=== PATIENT | female | born 1975 | race Hispanic/Latino ===

== ENCOUNTER 2018-08-23 00:22 | Emergency (ER) | payer SELFPAY ==
[2018-08-23 01:13] LABS: Absolute Lymphocytes (CBC) 3.1 K/uL (0.7-4.9); Basophils % 0.7 % (0-1.3); Eosinophils % 3.2 % (0-4.4); Hematocrit 38.4 % (36.0-45.0); MPV 9.4 fL (7.6-11.3); Monocytes % 9.6 % (3.3-12.3); RBC Red Blood Cell Count 4.54 M/uL (3.86-4.86)
[2018-08-23] MEDS ORDERED: MORPHINE 4 MG/ML SYR ONE (01:26)
[2018-08-23] MEDS ORDERED: ONDANSETRON 4 MG/2 ML VIAL ONE (01:26)
[2018-08-23 01:31] LABS: Urine Blood NEGATIVE (NEG); Urine Glucose NEGATIVE (NEG); Urine Protein NEGATIVE (NEG)
[2018-08-23 01:41] LABS: ALT/SGPT 25 U/L (12-78); AST/SGOT 16 U/L (15-37); Albumin 3.6 g/dL (3.4-5.0); Alkaline Phosphatase 67 U/L (45-117); BUN Blood Urea Nitrogen 9 mg/dL (7-18); Bicarbonate 29 mmol/L (21-32); Bilirubin Direct < 0.1 mg/dL (0-0.2); Bilirubin Total 0.3 mg/dL (0.2-1.0); Glucose Level 108 mg/dL (74-106); Lipase 109 U/L (73-393); Potassium 3.8 mmol/L (3.5-5.1); Protein, Total 7.7 g/dL (6.4-8.2); Sodium Level 140 mmol/L (136-145)
[2018-08-23 01:42] LABS: Urine Bacteria <20 /HPF (<20); Urine Culture Reflex Order NOT NEEDED; Urine RBC <5 /HPF (NONE SEEN)
--- NOTE | 2018-08-23 03:54 | ER ---
Nurse's Notes [facility] Name: Tori Marc Age: 43 yrs Sex: Female : 1975 Arrival Date: 08/23/2018 Time: 00:26 Bed 20 Private MD: Diagnosis: biliary colic Presentation: 08/23 00:28 Presenting complaint: Patient states: abd pain for the last two hours, vomiting. Pain la1 in RUQ and across upper abd. I have had this pain in the past in [place] and it was my gallbladder and they gave me medicine for pain. Transition of care: patient was not received from another setting of care. Onset of symptoms was August 23, 2018. Risk Assessment: Do you want to hurt yourself or someone else? Patient reports no desire to harm self or others. Initial Sepsis Screen: Does the patient meet any 2 criteria? No. Patient's initial sepsis screen is negative. Does the patient have a suspected source of infection? No. Patient's initial sepsis screen is negative. Care prior to arrival: None. 00:28 Method Of Arrival: Ambulatory la1 00:28 Acuity: DIONISIO 3 la1 Historical: - Allergies: 00:29 No Known Allergies; la1 - PMHx: 00:29 None; la1 - Immunization history:: Adult Immunizations up to date. - Social history:: Smoking status: Patient/guardian denies using tobacco. - Ebola Screening: : No symptoms or risks identified at this time. Screenin:39 Abuse screen: Denies threats or abuse. Denies injuries from another. Nutritional rv screening: No deficits noted. Tuberculosis screening: No symptoms or risk factors identified. Fall Risk None identified. Assessment: 01:00 General: Appears in no apparent distress. uncomfortable, Behavior is calm, cooperative. rv 01:00 Pain: Complains of pain in abdomen. Neuro: Level of Consciousness is awake, alert, rv obeys commands, Oriented to person, place, time, situation. Cardiovascular: Patient's skin is warm and dry. Respiratory: Airway is patent. GI: Bowel sounds present X 4 quads. Abd is soft and non tender X 4 quads. : No signs and/or symptoms were reported regarding the genitourinary system. EENT: No signs and/or symptoms were reported regarding the EENT system. Derm: Skin is intact. Musculoskeletal: No signs and/or symptoms reported regarding the musculoskeletal system. 02:00 Reassessment: Patient appears in no apparent distress at this time. Patient and/or jb4 family updated on plan of care and expected duration. Pain level reassessed. Patient is alert, oriented x 3, equal unlabored respirations, skin warm/dry/pink. 03:26 Reassessment: Patient appears in no apparent distress at this time. Patient and/or jb4 family updated on plan of care and expected duration. Pain level reassessed. Patient is alert, oriented x 3, equal unlabored respirations, skin warm/dry/pink. 04:26 Reassessment: Patient appears in no apparent distress at this time. Patient and/or jb4 family updated on plan of care and expected duration. Pain level reassessed. Patient is alert, oriented x 3, equal unlabored respirations, skin warm/dry/pink. pt ambulated out of ED with steady gait, with family, verbalized understanding of d/c and follow up instructions, denies questions or concerns. Vital Signs: 00:29 BP 131 / 60; Pulse 85; Resp 16; Temp 97.4; Pulse Ox 98% on R/A; Weight 80 kg; Height 5 la1 ft. 0 in. (152.40 cm); 01:39 BP 121 / 68; Pulse 71; Resp 17; Pulse Ox 99% on R/A; rv 03:00 BP 120 / 88; Pulse 68; Resp 16; Pulse Ox 98% on R/A; jb4 00:29 Body Mass Index 34.44 (80.00 kg, 152.40 cm) la1 ED Course: 00:26 Patient arrived in ED. mr 00:29 Triage completed. la1 00:29 Arm band placed on left wrist. la1 00:33 Mega Mireles PA is PHCP. cp 00:33 Víctor Martinez MD is Attending Physician. cp 01:15 Inserted saline lock: 18 gauge in right antecubital area, using aseptic technique. rv Blood collected. 01:35 Matt Britt, DESTINEE is Primary Nurse. rv 01:39 Patient has correct armband on for positive identification. Placed in gown. Bed in low rv position. Call light in reach. Side rails up X 1. Adult w/ patient. Pulse ox on. NIBP on. 01:58 Report given to kate seay. rv 03:11 CT Abd/Pelvis - IV Contrast Only In Process Unspecified. EDMS 03:52 Supa Shah MD is Referral Physician. ps1 04:29 No provider procedures requiring assistance completed. IV discontinued, intact, jb4 bleeding controlled, No redness/swelling at site. Administered Medications: 01:20 Drug: morphine 4 mg Route: IVP; Site: right antecubital; rv 01:57 Follow up: Response: Marked relief of symptoms; Pain is decreased rv 01:20 Drug: Zofran 4 mg Route: IVP; Site: right antecubital; rv 01:58 Follow up: Response: No adverse reaction rv Outcome: 03:53 Discharge ordered by MD. ps1 04:29 Discharged to home ambulatory, with family. jb4 04:29 Condition: stable 04:29 Discharge instructions given to patient, family, Instructed on discharge instructions, follow up and referral plans. medication usage, Demonstrated understanding of instructions, follow-up care, medications, Prescriptions given X 1. 04:30 Patient left the ED. jb4 Signatures: Dispatcher [employer] EDMA Choco Peggy mr William Bryson, RN RN la1 Mega Mireles PA PA cp Bryson, James RN RN jb4 Víctor Martinez MD MD ps1 Matt Britt RN RN rv Corrections: (The following items were deleted from the chart) 00:30 00:28 Presenting complaint: Patient states: abd pain for the last two hours, vomiting. la1 Pain in RUQ and across upper abd. la1
--- NOTE | 2018-08-23 03:54 | EDPHYS ---
Physician Documentation [facility] Name: Tori Marc Age: 43 yrs Sex: Female : 1975 Arrival Date: 08/23/2018 Time: 00:26 Bed 20 Private MD: ED Physician Víctor Martinez HPI: 08/23 00:55 This 43 yrs old Female presents to ER via Ambulatory with complaints of cp Abdominal Pain, Vomiting. 00:55 The patient presents with abdominal pain in the right upper quadrant. Onset: The cp symptoms/episode began/occurred 2 hour(s) ago. The symptoms radiate to right back. 00:55 Associated signs and symptoms: Pertinent negatives: blood in stools, chest pain, cp constipation, diarrhea, dysuria, fever, vomiting. 00:55 Severity of pain: in the emergency department the pain is unchanged. The patient has cp experienced similar episodes in the past, multiple times, patient reports she was told by physician in [place] that pain was due to gallbladder. Historical: - Allergies: 00:29 No Known Allergies; la1 - PMHx: 00:29 None; la1 - Immunization history:: Adult Immunizations up to date. - Social history:: Smoking status: Patient/guardian denies using tobacco. - Ebola Screening: : No symptoms or risks identified at this time. ROS: 01:00 Constitutional: Negative for body aches, chills, fever, poor PO intake. cp 01:00 Eyes: Negative for injury, pain, redness, and discharge. cp Exam: 01:05 Constitutional: The patient appears in no acute distress, alert, awake, cp non-diaphoretic, non-toxic, well developed, well nourished, in obvious pain, uncomfortable. 01:05 Head/Face: Normocephalic, atraumatic. cp 01:05 Eyes: Periorbital structures: appear normal, Conjunctiva: normal, no exudate, no cp injection, Sclera: no appreciated abnormality, Lids and lashes: appear normal, bilaterally. 01:05 ENT: External ear(s): are unremarkable, Nose: is normal, Mouth: Lips: moist, Oral cp mucosa: pink and intact, moist, Posterior pharynx: is normal, airway is patent. 01:05 Chest/axilla: Inspection: normal, Palpation: is normal, no crepitus, no tenderness. 01:05 Cardiovascular: Rate: normal, Rhythm: regular. 01:05 Respiratory: the patient does not display signs of respiratory distress, Respirations: normal, no use of accessory muscles, no retractions, no splinting, no tachypnea, labored breathing, is not present, Breath sounds: are clear throughout, no decreased breath sounds, no stridor, no wheezing. 01:05 Abdomen/GI: Inspection: abdomen appears normal, Bowel sounds: active, all quadrants, Palpation: soft, in all quadrants, severe abdominal tenderness, in the right upper quadrant, rebound tenderness, is appreciated in the right upper quadrant, voluntary guarding, is elicited in the right upper quadrant. 01:05 Back: pain, that is moderate, of the right mid back. Vital Signs: 00:29 BP 131 / 60; Pulse 85; Resp 16; Temp 97.4; Pulse Ox 98% on R/A; Weight 80 kg; Height 5 la1 ft. 0 in. (152.40 cm); 01:39 BP 121 / 68; Pulse 71; Resp 17; Pulse Ox 99% on R/A; rv 03:00 BP 120 / 88; Pulse 68; Resp 16; Pulse Ox 98% on R/A; jb4 00:29 Body Mass Index 34.44 (80.00 kg, 152.40 cm) la1 MDM: 00:46 Patient medically screened. cp 01:00 Differential diagnosis: appendicitis, bowel obstruction, cholecystitis, Cholelithiasis, cp gastritis, pancreatitis, Ureterolithiasis, urinary tract infection, colitis. 03:54 Data reviewed: vital signs, nurses notes, lab test result(s), radiologic studies, CT ps1 scan, and as a result, I will discharge patient. ED course: patient has known cholelithiasis. Biliary colic. No leukocytosis. No elevated transaminase. No CT findings suggestive of infection. Normal CBD. Home with gen surg referral. . 08/23 00:52 Order name: Basic Metabolic Panel; Complete Time: 01:44 cp 08/23 01:44 Interpretation: Normal except: GLUC 108; GFR 87. 08/23 00:52 Order name: CBC with Diff; Complete Time: 01:27 08/23 01:27 Interpretation: Reviewed. 08/23 00:52 Order name: Creatinine for Radiology; Complete Time: 01:44 cp 08/23 00:52 Order name: Hepatic Function; Complete Time: 01:44 cp 08/23 01:44 Interpretation: Normal except: GLOB 4.1; A/G 0.9. cp 08/23 00:52 Order name: Lipase; Complete Time: 01:44 cp 08/23 00:52 Order name: Urine Microscopic Only; Complete Time: 01:44 cp 08/23 00:52 Order name: IV Saline Lock; Complete Time: 01:41 cp 08/23 00:52 Order name: Labs collected and sent; Complete Time: 01:41 cp 08/23 00:52 Order name: Urine Dipstick-Ancillary (obtain specimen); Complete Time: 01:41 cp 08/23 00:52 Order name: CT Abd/Pelvis - IV Contrast Only cp 08/23 01:27 Order name: Urine Dipstick--Ancillary (enter results); Complete Time: 01:44 mt 08/23 01:44 Interpretation: Normal except: UESTR TRACE. cp 08/23 01:27 Order name: Urine --Ancillary (enter results); Complete Time: 01:44 mt 08/23 00:52 Order name: Urine Test (obtain specimen); Complete Time: 01:41 cp Administered Medications: 01:20 Drug: morphine 4 mg Route: IVP; Site: right antecubital; rv 01:57 Follow up: Response: Marked relief of symptoms; Pain is decreased rv 01:20 Drug: Zofran 4 mg Route: IVP; Site: right antecubital; rv 01:58 Follow up: Response: No adverse reaction rv Disposition: 06:18 Co-signature as Attending Physician, Víctor Martinez MD Available for consultation at ps1 all times. . Disposition: 08/23/18 03:53 Discharged to Home. Impression: biliary colic. - Condition is Stable. - Discharge Instructions: Biliary Colic, Adult. - Prescriptions for Tramadol 50 mg Oral Tablet - take 1 tablet by ORAL route every 8 hours as needed; 12 tablet. - Medication Reconciliation Form, Thank You Letter, Antibiotic Education, Prescription Opioid Use form. - Follow up: Supa Shah MD; When: 48 Hours; Reason: Further diagnostic work-up, Recheck today's complaints. Follow up: Emergency Department; When: As needed; Reason: Fever > 102 F, Worsening of condition. - Problem is an ongoing problem. - Symptoms have worsened. Signatures: Dispatcher [employer] EDMS William Bryson RN RN la1 Mega Mireles PA PA cp Bryson, James RN RN jb4 Víctor Martinez MD MD ps1 Matt Britt RN RN rv Corrections: (The following items were deleted from the chart) 04:30 03:53 08/23/2018 03:53 Discharged to Home. Impression: biliary colic. Condition is jb4 Stable. Forms are Medication Reconciliation Form, Thank You Letter, Antibiotic Education, Prescription Opioid Use. Follow up: Dr. Supa Shah; When: 48 Hours; Reason: Further diagnostic work-up, Recheck today's complaints. Follow up: Emergency Department; When: As needed; Reason: Fever > 102 F, Worsening of condition. Problem is an ongoing problem. Symptoms have worsened. ps1
--- NOTE | 2018-08-23 10:27 | RAD REPORT ---
EXAM DESCRIPTION: CT Abdomen and Pelvis With Intravenous Contrast CLINICAL HISTORY: The patient is 43 years old and is Female; RUQ abdomen pain TECHNIQUE: Axial computed tomography images of the abdomen and pelvis with intravenous contrast. S agittal and coronal reformatted images were created and reviewed. This CT exam was performed using one or more of the following dose reduction techniques: automated exposure control, adjustment of t he mA and/or kV according to patient size, and/or use of iterative reconstruction technique. Delayed imaging was performed. COMPARISON: None. FINDINGS: Motion degraded examination. LUNG BASES: Bibasilar atelectasis. ABDOMEN: LIVER: Unremarkable. No mass. GALLBLADDER AND BILE DUCTS: Peripherally calcified gallstone measuring 2.4 cm seen in the gallblad romaine neck. Fluid distention of the gallbladder is also present. No gallbladder wall thickening or marvin cholecystic fluid. No ductal dilation. PANCREAS: Unremarkable. No mass. No ductal dilation. SPLEEN: Unremarkable. No splenomegaly. ADRENALS: Unremarkable. No mass. KIDNEYS AND URETERS: Unremarkable. No solid mass. No hydronephrosis. STOMACH AND BOWEL: Unremarkable. No obstruction. No mucosal thickening. PELVIS: APPENDIX: The appendix is seen and is within normal limits. BLADDER: Thickening of the bladder wall. REPRODUCTIVE: 2 cm right ovarian cyst. ABDOMEN and PELVIS: INTRAPERITONEAL SPACE: Unremarkable. No free air. No significant fluid collection. BONES/JOINTS: Grade 1 anterolisthesis of L4-L5 degenerative basis. No acute fracture. No dislocation. SOFT TISSUES: Small fat-containing umbilical hernia. VASCULATURE: Unremarkable. No abdominal aortic aneurysm. LYMPH NODES: Unremarkable. No enlarged lymph nodes. IMPRESSION: Motion degraded examination 1. 2.4 cm stone in the gallbladder neck with associated fluid distention. No pericholecystic fluid or gallbladder wall thickening. Dedicated right upper quadrant ultrasound may be of diagnostic use 2. 2 cm right ovarian cyst. No follow-up imaging is recommended. Reference: US recommendations based on Radiology 2010 Sep;256(3):943-54; CT/MR recommendations based on J Am Chandu Radiol 2013;10:675-681. 3. Thickening of the bladder wall. Correlate with signs of cystitis. Electronically signed by: Denis Acevedo DO 08/23/2018 3:36 AM CDT Due to temporary technical issues with the PACS/Fluency reporting system, reports are being signed by the in house radiologist as a courtesy to ensure prompt reporting. The interpreting radiologist is f ully responsible for the content of the report.
== END 2018-08-23 04:30 | disposition home or self-care (01) ==
LOC: ER 00:22
DX: K80.50 Calculus of bile duct without cholangitis or cholecystitis without obstruction (principal)
CPT/HCPCS: 36415; 74177; 80048; 80076; 81003; 81015; 81025; 83690; 85025; 96374; 96375; 99284; J2405; Q9967

== ENCOUNTER 2018-08-23 11:58 | Inpatient (IN) | payer SELFPAY ==
[2018-08-23] MEDS ORDERED: ONDANSETRON 4 MG/2 ML VIAL ONE ×2 (12:46→17:32)
[2018-08-23] MEDS ORDERED: NA CHLORIDE 0.9% 1,000 ML ONE (12:46)
[2018-08-23 12:52] LABS: Absolute Lymphocytes (CBC) 1.5 K/uL (0.7-4.9); Basophils % 0.5 % (0-1.3); Eosinophils % 0.1 % (0-4.4); Hematocrit 41.6 % (36.0-45.0); Lymphocytes % 10.2 % (15.3-44.8); MPV 9.2 fL (7.6-11.3); Monocytes % 3.6 % (3.3-12.3); RBC Red Blood Cell Count 4.91 M/uL (3.86-4.86)
[2018-08-23 13:05] LABS: Albumin 3.9 g/dL (3.4-5.0); Bilirubin Direct 0.1 mg/dL (0-0.2); Bilirubin Total 0.5 mg/dL (0.2-1.0); Potassium 3.9 mmol/L (3.5-5.1); Protein, Total 8.4 g/dL (6.4-8.2)
[2018-08-23] MEDS ORDERED: MORPHINE 4 MG/ML SYR ONE ×2 (13:25→17:32)
--- NOTE | 2018-08-23 13:49 | RAD REPORT ---
EXAM DESCRIPTION: US - Abdomen Exam Limited - 08/23/2018 1:33 pm CLINICAL HISTORY: RUQ;Abd pain COMPARISON: No comparisons FINDINGS: The gallbladder demonstrates a large shadowing gallstone in the gallbladder neck. No peric holecystic fluid or gallbladder wall thickening. The common bile duct is normal measuring 4 mm. The liver demonstrates no findings of intrahepatic biliary dilatation. IMPRESSION: Cholelithiasis.
--- NOTE | 2018-08-23 14:03 | EDPHYS ---
Physician Documentation [facility] Name: Tori Marc Age: 43 yrs Sex: Female : 1975 Arrival Date: 08/23/2018 Time: 12:01 Bed 25 Private MD: ED Physician Brown Nolasco HPI: 08/23 16:19 This 43 yrs old Female presents to ER via Wheelchair with complaints of kdr Abdominal Pain, Vomiting. 16:19 The patient presents to the emergency department with nausea. kdr 16:19 The patient presents with abdominal pain in the right upper quadrant. Onset: The kdr symptoms/episode began/occurred gradually, 2 day(s) ago. The symptoms do not radiate. Associated signs and symptoms: Pertinent positives: nausea and vomiting, Pertinent negatives: constipation, diarrhea, dysuria, fever, headache, palpitations, vomiting blood. The symptoms are described as achy, crampy, steady, waxing/waning. Modifying factors: The symptoms are alleviated by nothing, the symptoms are aggravated by drinking, food, touching the area. Severity of pain: At its worst the pain was moderate severe just prior to arrival, in the emergency department the pain is unchanged. The patient has experienced similar episodes in the past, several times. The patient has been recently seen by a physician: The patient has been recently seen at the [facility] Emergency Department, today. 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 - Social history:: Smoking status: Patient/guardian denies using tobacco. - Ebola Screening: : No symptoms or risks identified at this time. ROS: 16:19 Constitutional: Negative for fever, chills, and weight loss, Eyes: Negative for injury, kdr pain, redness, and discharge, ENT: Negative for injury, pain, and discharge, Neck: Negative for injury, pain, and swelling, Cardiovascular: Negative for chest pain, palpitations, and edema, Respiratory: Negative for shortness of breath, cough, wheezing, and pleuritic chest pain, Back: Negative for injury and pain, : Negative for injury, bleeding, discharge, and swelling, MS/Extremity: Negative for injury and deformity, Skin: Negative for injury, rash, and discoloration, Neuro: Negative for headache, weakness, numbness, tingling, and seizure activity. Psych: Negative for depression, anxiety, suicide ideation, homicidal ideation, and hallucinations, Allergy/Immunology: Negative for hives, rash, and allergies, Endocrine: Negative for neck swelling, polydipsia, polyuria, polyphagia, and marked weight changes, Hematologic/Lymphatic: Negative for swollen nodes, abnormal bleeding, and unusual bruising. 16:19 Abdomen/GI: Positive for abdominal pain, nausea and vomiting, Negative for diarrhea, constipation, abdominal distension, anorexia, dysphagia, hematemesis, black/tarry stool, rectal pain, rectal bleeding. Exam: 16:19 Constitutional: This is a well developed, well nourished patient who is awake, alert, kdr and in moderate distress. Head/Face: Normocephalic, atraumatic. Eyes: Pupils equal round and reactive to light, extra-ocular motions intact. Lids and lashes normal. Conjunctiva and sclera are non-icteric and not injected. Cornea within normal limits. Periorbital areas with no swelling, redness, or edema. Neck: Trachea midline, no thyromegaly or masses palpated, and no cervical lymphadenopathy. Supple, full range of motion without nuchal rigidity, or vertebral point tenderness. No Meningismus. Chest/axilla: Normal chest wall appearance and motion. Nontender with no deformity. No lesions are appreciated. Cardiovascular: Regular rate and rhythm with a normal S1 and S2. No gallops, murmurs, or rubs. Normal PMI, no JVD. No pulse deficits. Respiratory: Lungs have equal breath sounds bilaterally, clear to auscultation and percussion. No rales, rhonchi or wheezes noted. No increased work of breathing, no retractions or nasal flaring. Back: No spinal tenderness. No costovertebral tenderness. Full range of motion. Skin: Warm, dry with normal turgor. Normal color with no rashes, no lesions, and no evidence of cellulitis. MS/ Extremity: Pulses equal, no cyanosis. Neurovascular intact. Full, normal range of motion. Neuro: Awake and alert, GCS 15, oriented to person, place, time, and situation. Cranial nerves II-XII grossly intact. Motor strength 5/5 in all extremities. Sensory grossly intact. Cerebellar exam normal. Normal gait. Psych: Awake, alert, with orientation to person, place and time. Behavior, mood, and affect are within normal limits. 16:19 Abdomen/GI: Inspection: abdomen appears normal, Bowel sounds: active, all quadrants, diminished, in all quadrants, Palpation: soft, mild abdominal tenderness, in all quadrants, in the right upper quadrant, mass, is not appreciated, rebound tenderness, is not appreciated, voluntary guarding, is not appreciated, involuntary guarding, is not appreciated, Indicators: McBurney's point is not tender, Reddy's sign is negative, Rovsing's sign is negative, Obturator sign is negative, Psoas sign is negative. Vital Signs: 12:07 BP 122 / 64; Pulse 70; Resp 18; Temp 97.9(TE); Pulse Ox 100% on R/A; Weight 72.57 kg aa5 (R); Height 5 ft. 4 in. (162.56 cm) (R); Pain 10/10; 13:46 BP 127 / 77; Pulse 72; Resp 16; Pulse Ox 100% on R/A; aj 15:53 BP 123 / 80; Pulse 60; Resp 18; Pulse Ox 99% on R/A; aj 12:07 Body Mass Index 27.46 (72.57 kg, 162.56 cm) aa5 MDM: 14:02 Patient medically screened. kdr 16:19 Data reviewed: vital signs, nurses notes, lab test result(s), radiologic studies. kdr Counseling: I had a detailed discussion with the patient and/or guardian regarding: the historical points, exam findings, and any diagnostic results supporting the discharge/admit diagnosis, lab results, radiology results, the need for further work-up and treatment in the hospital. Physician consultation: Supa Shah MD and will see patient in inpatient room, tomorrow. Admission orders: after a detailed discussion of the patient's condition and case, the admit orders are written by me. 08/23 12:23 Order name: Basic Metabolic Panel; Complete Time: 13:08 kdr 08/23 12:23 Order name: CBC with Diff; Complete Time: 16:18 kdr 08/23 12:23 Order name: Creatinine for Radiology; Complete Time: 13:08 kdr 08/23 12:23 Order name: Hepatic Function; Complete Time: 13:08 kdr 08/23 12:23 Order name: Lipase; Complete Time: 13:08 kdr 08/23 13:26 Order name: CBC Smear Scan; Complete Time: 16:18 EDMS 08/23 16:33 Order name: Basic Metabolic Panel EDMS 08/23 16:33 Order name: Basic Metabolic Panel EDMS 08/23 16:33 Order name: CBC with Automated Diff EDMS 08/23 16:33 Order name: CBC with Automated Diff EDMS 08/23 16:33 Order name: Lipase EDMS 08/23 16:33 Order name: Lipase EDMS 08/23 16:33 Order name: Liver (Hepatic) Function EDMS 08/23 16:33 Order name: Liver (Hepatic) Function EDMS 08/23 12:23 Order name: IV Saline Lock; Complete Time: 12:40 kdr 08/23 12:23 Order name: Labs collected and sent; Complete Time: 12:40 kdr 08/23 13:10 Order name: US Abdomen Limited; Complete Time: 13:56 kdr 08/23 16:33 Order name: NPO EDMS 08/23 17:27 Order name: Diet Clear Liquid; Complete Time: 17:27 aa5 Administered Medications: 12:40 Drug: NS 0.9% 1000 ml Route: IV; Rate: 1 bolus; Site: left antecubital; aj 12:40 Drug: Zofran 4 mg Route: IVP; Site: left antecubital; aj 13:09 Drug: morphine 4 mg Route: IVP; Site: left antecubital; aj 17:10 Drug: Mefoxin 1 grams Route: IVPB; Infused Over: 30 mins; Site: left antecubital; ca1 17:57 Follow up: Response: No adverse reaction ca1 17:22 Drug: Zofran 4 mg Route: IVP; Site: left antecubital; aa5 17:27 Follow up: Response: No adverse reaction aa5 17:22 Drug: morphine 4 mg Route: IVP; Site: left antecubital; aa5 17:27 Follow up: Response: No adverse reaction aa5 Disposition: 08/23/18 14:02 Hospitalization ordered by Supa Shah for Observation. Preliminary diagnosis are Cholelithiasis, Abdominal and pelvic pain. - Bed requested for Telemetry/MedSurg (observation). - Status is Observation. ss - Condition is Fair. - Problem is an ongoing problem. - Symptoms have improved. UTI on Admission? No Signatures: Dispatcher [employer] EDMS Chantel Inman bd Janice Phipps, RN RN Brown Omalley MD MD [facility] Ashanti Carmichael RN RN aa5 Yamileth Nagy RN RN ss Navid Jo PA PA jr8 Honey Almonte RN RN ca1 Corrections: (The following items were deleted from the chart) 17:48 14:02 Hospitalization Ordered by Supa Shah MD for Observation. Preliminary diagnosis bd is Cholelithiasis; Abdominal and pelvic pain. Bed requested for Telemetry/MedSurg (observation). Status is Observation. Condition is Fair. Problem is an ongoing problem. Symptoms have improved. UTI on Admission? No. kdr 18:24 17:48 08/23/2018 14:02 Hospitalization Ordered by Supa Shah MD for Observation. ss Preliminary diagnosis is Cholelithiasis; Abdominal and pelvic pain. Bed requested for Telemetry/MedSurg (observation). Status is Observation. Condition is Fair. Problem is an ongoing problem. Symptoms have improved. UTI on Admission? No. bd
--- NOTE | 2018-08-23 14:03 | ER ---
Nurse's Notes [facility] Name: Tori Marc Age: 43 yrs Sex: Female : 1975 Arrival Date: 08/23/2018 Time: 12:01 Bed 25 Private MD: Diagnosis: Cholelithiasis;Abdominal and pelvic pain Presentation: 08/23 12:05 Presenting complaint: Patient states: being seen here last night and diagnosed with aa5 biliary colic and prescribed Tramadol. Pt states "I haven't been able to keep anything down and my stomach still hurts". Pt reports pain to RUQ pain radiating to back. Transition of care: patient was not received from another setting of care. Onset of symptoms was August 2018. Risk Assessment: Do you want to hurt yourself or someone else? Patient reports no desire to harm self or others. Initial Sepsis Screen: Does the patient meet any 2 criteria? No. Patient's initial sepsis screen is negative. Does the patient have a suspected source of infection? No. Patient's initial sepsis screen is negative. Care prior to arrival: None. 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 - Social history:: Smoking status: Patient/guardian denies using tobacco. - Ebola Screening: : No symptoms or risks identified at this time. Screenin:41 Abuse screen: Denies threats or abuse. Denies injuries from another. Nutritional aj screening: No deficits noted. Tuberculosis screening: No symptoms or risk factors identified. Fall Risk None identified. Assessment: 12:41 General: Appears in no apparent distress. comfortable, Behavior is calm, cooperative, aj appropriate for age. Pain: Complains of pain in epigastric area and right upper quadrant. Neuro: Level of Consciousness is awake, alert, obeys commands, Oriented to person, place, time, situation, Appropriate for age. Respiratory: Airway is patent Respiratory effort is even, unlabored, Respiratory pattern is regular, symmetrical. GI: Bowel sounds present X 4 quads. Abd is soft and non tender Reports upper abdominal pain, nausea, vomiting. Derm: Skin is intact, is healthy with good turgor, Skin is pink, warm \\T\\ dry. normal. Vital Signs: 12:07 BP 122 / 64; Pulse 70; Resp 18; Temp 97.9(TE); Pulse Ox 100% on R/A; Weight 72.57 kg aa5 (R); Height 5 ft. 4 in. (162.56 cm) (R); Pain 10/10; 13:46 BP 127 / 77; Pulse 72; Resp 16; Pulse Ox 100% on R/A; aj 15:53 BP 123 / 80; Pulse 60; Resp 18; Pulse Ox 99% on R/A; aj 12:07 Body Mass Index 27.46 (72.57 kg, 162.56 cm) aa5 ED Course: 12:01 Patient arrived in ED. rg4 12:06 Triage completed. aa5 12:06 Arm band placed on. aa5 12:08 Janice Phipps, DESTINEE is Primary Nurse. aj 12:22 Brown Nolasco MD is Attending Physician. kdr 12:41 Patient has correct armband on for positive identification. Bed in low position. aj 12:41 Inserted saline lock: 20 gauge in left antecubital area, using aseptic technique. Blood aj collected. 13:29 US Abdomen Limited In Process Unspecified. EDMS 14:02 Supa Shah MD is Hospitalizing Provider. kdr Administered Medications: 12:40 Drug: NS 0.9% 1000 ml Route: IV; Rate: 1 bolus; Site: left antecubital; aj 12:40 Drug: Zofran 4 mg Route: IVP; Site: left antecubital; aj 13:09 Drug: morphine 4 mg Route: IVP; Site: left antecubital; aj 17:10 Drug: Mefoxin 1 grams Route: IVPB; Infused Over: 30 mins; Site: left antecubital; ca1 17:57 Follow up: Response: No adverse reaction ca1 17:22 Drug: Zofran 4 mg Route: IVP; Site: left antecubital; aa5 17:27 Follow up: Response: No adverse reaction aa5 17:22 Drug: morphine 4 mg Route: IVP; Site: left antecubital; aa5 17:27 Follow up: Response: No adverse reaction aa5 Outcome: 14:02 Decision to Hospitalize by Provider. kdr 18:24 Patient left the ED. ss Signatures: Dispatcher [employer] Janice Alvarado, RN Brown Stoner MD MD kdr Calderon, Audri, RN RN aa5 Yamileth Nagy RN RN ss Virginia Wong4 Honey Almonte RN RN ca1
[2018-08-23 14:56] LABS: Blood Morphology Comment NOT SEEN (NOT SEEN); Platelet Estimate ADEQ; Urine White Blood Cell Casts OK
[2018-08-23] MEDS ORDERED: ONDANSETRON 4 MG/2 ML VIAL IV PRN (16:28)
[2018-08-23] MEDS ORDERED: ACETAMINOPHEN 500 MG TAB PO PRN (16:28)
[2018-08-23] MEDS ORDERED: CEFOXITIN/SWI 1gm 1 GM/10 ML SYR ONE (16:59)
[2018-08-23] MEDS ORDERED: CEFOXITIN SODIUM 1 GM/VIAL IVPB SCH (18:00)
[2018-08-23] MEDS: D5 0.45 NS 1,000 ML IV SCH (18:46)
[2018-08-23] MEDS: MORPHINE 4 MG/ML SYR IV PRN (22:12)
[2018-08-23] MEDS: CEFOXITIN/SWI 1gm 1 GM/10 ML SYR IV SCH (23:41)
[2018-08-24] MEDS: D5 0.45 NS 1,000 ML IV SCH ×6 (01:00→21:40)
[2018-08-24] MEDS: CEFOXITIN/SWI 1gm 1 GM/10 ML SYR IV SCH ×4 (06:07→23:51)
[2018-08-24] MEDS: MORPHINE 4 MG/ML SYR IV PRN (06:10)
[2018-08-24 06:20] LABS: Albumin 3.2 g/dL (3.4-5.0); Bilirubin Direct 0.2 mg/dL (0-0.2); Bilirubin Total 0.7 mg/dL (0.2-1.0); Potassium 3.2 mmol/L (3.5-5.1); Protein, Total 7.2 g/dL (6.4-8.2)
[2018-08-24 06:21] LABS: Absolute Lymphocytes (CBC) 1.6 K/uL (0.7-4.9); Basophils % 0.5 % (0-1.3); Hematocrit 38.2 % (36.0-45.0); Lymphocytes % 11.3 % (15.3-44.8); MPV 9.5 fL (7.6-11.3); RBC Red Blood Cell Count 4.43 M/uL (3.86-4.86)
[2018-08-24 09:07] LABS: Specific Gravity <= 1.005 (1.005-1.030)
[2018-08-24] MEDS ORDERED: Ringers Lactate 1,000 ML IV ONE (10:36)
[2018-08-24] MEDS ORDERED: MIDAZOLAM HCL 2 MG/2 ML INJ ONE (10:59)
[2018-08-24] MEDS ORDERED: PROPOFOL 200 MG/20 ML VIAL IV ONE (11:06)
[2018-08-24] MEDS ORDERED: FENTANYL CITR 100 MCG/2 ML ONE ×2 (11:06→11:20)
[2018-08-24] MEDS ORDERED: LIDOCAINE 1% MPF 5 ML VIAL ONE (11:07)
[2018-08-24] MEDS ORDERED: ROCURONIUM 50 MG/5 ML VIAL IV ONE (11:18)
--- NOTE | 2018-08-24 11:39 | PREOPHP ---
Date of Admission: 08/23/2018 Reason: Abdominal pain. History Of Present Illness: The patient is a 43-year-old, who comes in with epigastric right upper q uadrant abdominal pain associated with nausea and into the back occasionally. No vomiting today, but she did have some onset of the pain. No diarrhea or constipation. No blood in her stool. No dysur ia, hematuria. No sore throat, runny nose, cough, headaches, or dizziness. No chest pain. No fever or chills. The patient had a similar episode about a year ago. She was admitted yesterday, however , she came to the ER the day before and was discharged. Her white count was normal. Yesterday, she had leukocytosis and was admitted and I was contacted. Review of Systems: Otherwise unremarkable. Past Medical History: Negative. Past Surgical History: Three and breast biopsy. Allergies: NO ALLERGIES. Social History: She denies smoking or drinking. Family History: Noncontributory. Physical Examination: Vital Signs: Stable. She is afebrile. She is awake, alert, and oriented x3. Head and Neck: She has no evidence of icterus. No neck masses. No JVD. Throat clear. Neck is sup ple. Chest: Clear. Heart: S1, S2. Abdomen: Soft, nondistended. Positive epigastric right upper quadrant tenderness. Minimal rebound. No rigidity or guarding. Extremities: Adequately perfused. Nontender. Neurologic: Nonfocal. Diagnostic Data: Ultrasound shows a stone in neck of the gallbladder, but no evidence of any gallbla dder wall thickening or pericholecystic fluid. White count is 14,000 with a left shift. LFTs are no rmal. Assessment: A 43-year-old female with acute cholecystitis and cholelithiasis. Plan: Admit n.p.o., IV fluid, IV antibiotic. To the OR for lap jovanny, possible open. 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 /MODL Voice ID: [id number]
--- NOTE | 2018-08-24 11:39 | P.OP ---
Commercial Stripper: Sergey COLUNGA Preoperative diagnosis: Acute Cholecystitis and Cholelithiasis Postoperative diagnosis: same Primary procedure: Lap Dana Anesthesia: General Estimated blood loss: min Specimen: GB Findings: as above Complications: None Transferred to: Recovery Room Condition: Good
[2018-08-24] MEDS ORDERED: GLYCOPYRROLATE 0.2 MG/ML SYR ONE (11:49)
[2018-08-24] MEDS ORDERED: NEOSTIGMINE 1 MG/ML -10 ML VIAL ONE (11:49)
[2018-08-24] MEDS ORDERED: KETOROLAC 30 MG/ML INJ ONE (11:49)
[2018-08-24] MEDS ORDERED: ONDANSETRON 4 MG/2 ML VIAL ONE (11:50)
[2018-08-24] MEDS: HYDROMORPHONE HCL 2 MG/ML inj ONE ×3 (12:01→12:20)
[2018-08-24] MEDS ORDERED: PROMETHAZINE 25 MG/ML VIAL ONE (12:15)
[2018-08-24] MEDS ORDERED: HYDROMORPHONE HCL 1 MG/ML INJ IV PRN (12:16)
[2018-08-24] MEDS ORDERED: CEFOXITIN SODIUM 1 GM/VIAL IVPB SCH (12:16)
[2018-08-24] MEDS ORDERED: ONDANSETRON 4 MG/2 ML VIAL IV PRN (12:16)
[2018-08-24] MEDS ORDERED: ONDANSETRON HCL 40 MG/20 ML VIAL ONE (12:39)
--- NOTE | 2018-08-24 13:15 | OP ---
Date of Procedure: 08/24/2018 Surgeon: Supa Shah MD Health Information Director: KEANU Thakur Preoperative Diagnoses: Acute cholecystitis and cholelithiasis. Postoperative Diagnoses: Acute cholecystitis and cholelithiasis. Procedure: Laparoscopic cholecystectomy. Estimated Blood Loss: Minimal. Specimen: Gallbladder. Findings: As above. Anesthesia: General. Complications: None. Disposition: The patient tolerated the procedure in stable condition and taken to Recovery in good g eneral condition. Description Of Procedure: The patient was brought to the OR and placed in supine position. General anesthesia was begun. The patient was prepped and draped in usual sterile fashion. Marcaine 0.5% wa s infiltrated locally. A 15 blade was used to make a 1 cm supraumbilical midline incision. Subcutan eous tissue was divided. The fascia was identified and divided. A #1 Vicryl stay suture was placed. Peritoneal cavity was entered with blunt dissection. A 12 mm trocar was placed into the peritoneal cavity under direct vision. Pneumoperitoneum was established and then three [address] d, one in the epigastrium just right of the midline and two in the right subcostal region. Laparosco py revealed acute inflammation of the gallbladder with some ischemic necrosis at the fundus and diste nded gallbladder. This was aspirated. Fundus was retracted superiorly. Infundibulum was identified and retracted inferolaterally. Cystic duct and cystic artery were clearly identified with blunt dis section. Clips were placed. Both structures were divided. Cautery was used to remove the gallbladd er from the liver bed. Bleeding on the liver bed was controlled with cautery. The gallbladder was r etrieved through the umbilicus via an EndoCatch bag. Right upper quadrant was irrigated. Effluent w as clear. No evidence of bleeding or bile leakage appreciated. Subsequently, all trocars were remov ed under direct vision. Stay sutures were tied to each other to approximate the fascial defect. Sub cutaneous wounds were irrigated. Bleeding controlled with cautery. A 3-0 chromic used to approximat e the subcutaneous tissue and close the skin. Sterile dressing was applied. The patient was awakene d and taken to Recovery in good general condition. /MODL Voice ID: [id number] Report ID: [id number]
[2018-08-24] MEDS: HYDROCODONE/APAP 7.5/325 MG TAB PO PRN ×2 (16:21→21:39)
[2018-08-25] MEDS: D5 0.45 NS 1,000 ML IV SCH ×3 (01:00→09:00)
[2018-08-25] MEDS: HYDROCODONE/APAP 7.5/325 MG TAB PO PRN ×3 (01:14→09:17)
[2018-08-25] MEDS: CEFOXITIN/SWI 1gm 1 GM/10 ML SYR IV SCH ×2 (05:32→12:00)
[2018-08-25 05:58] LABS: Absolute Lymphocytes (CBC) 2.1 K/uL (0.7-4.9); Basophils % 0.4 % (0-1.3); Eosinophils % 1.7 % (0-4.4); Hematocrit 34.3 % (36.0-45.0); Lymphocytes % 17.7 % (15.3-44.8); Monocytes % 10.6 % (3.3-12.3)
--- NOTE | 2018-08-26 04:01 | DS ---
Date of Discharge: 08/25/2018 Admitting Diagnoses: Acute cholecystitis and cholelithiasis. Discharge Diagnoses: Acute cholecystitis and cholelithiasis. Procedure Performed: Laparoscopic cholecystectomy. Hospital Course: Patient is a 43-year-old female, who underwent the aforementioned procedure. Posto peratively, tolerating clear liquids well, ambulating, pain controlled on p.o. pain medication, afebr ile, therefore diet will be advanced, if tolerating regular diet will be discharged later today. Disposition: Home. Condition: Stable. Discharge Instructions: Resume home medications and diet. Activity: As tolerated. No heavy lifting. Remove outer dressing in a.m. shower. Keep wound clean and dry. Follow up in my office in a week. Call for appointment. Keep Steri-Strips on at all times . Tylenol No. 3 one tablet p.o. q.4 p.r.n. pain. /MODL Voice ID: [id number] Report ID: [id number]
== END 2018-08-25 15:31 | disposition home or self-care (01) | DRG 419 ==
LOC: ER 11:58 → ERHOLD 16:43 → 4TH 18:16
PROVIDERS: ADMIT Surgery; ATTEND Surgery
PROC: 0FT44ZZ Resection of Gallbladder, Percutaneous Endoscopic Approach (ICD-10-PCS; 2018-08-24)
PROC: 0FT44ZZ Resection of Gallbladder, Percutaneous Endoscopic Approach (ICD-10-PCS; principal; 2018-08-24 11:00)
DX: K80.00 Calculus of gallbladder with acute cholecystitis without obstruction (principal)
CPT/HCPCS: 36415; 76705; 80048; 80076; 81025; 83690; 84703; 85025; 88304; 96374; 96375; 99284; J0694; J1170; J2250; J2405; J2550; J2704; J2710; J3010; J7030